=== PATIENT | male | born 1970 | race Caucasian/White ===

== ENCOUNTER → 2017-07-28 | Day surgery (SDC) | payer OTHER ==
[~2017-07-28] MED LIST: HYDROmorphONE/DILAUDID 1 MG/ML INJ IVP PRN; IOPAMIDOL (ISOVUE-300) 100 ML BTL ONE; KETOROLAC 15 MG/1 ML SDV IVP ONE; LIDOCAINE 2% VISCOUS 15 ML UDCUP ONE; LR 1,000 ML IV ONE; MAG HYDROX/AL HYDROX/SIMETH 30 ML UDCUP ONE; MBX SOLN 30 ML BOTTLE PO SCH; NS 1,000 ML IV ONE; NS 1,000 ML IV SCH; PANTOPRAZOLE SODIUM 40 MG TAB PO SCH; traMADol 50 MG TAB PO ONE; traMADol 50 MG TAB PO PRN
--- NOTE | 2017-07-28 15:30 | EDPHY ---
H & P Time Seen by Provider: 07/28/17 15:24 HPI/ROS: CHIEF COMPLAINT: Abdominal cramps, pain HISTORY OF PRESENT ILLNESS: The patient is a 46 y/o male with a history of GI issues complaining of abdominal pain and cramping onset 6 days ago. On he was eating dinner when he developed abdominal cramps and pain. The pain was in the middle of his upper abdomen. He laid down for a while and the cramps and pain receded. The cramps returned the next two days. He took milk of magnesia and felt an improvement. Wednesday the pain returned but was lower, in the center of his abdomen. The pain has not improved. He has associated abdominal cramping which fluctuates in intensity. The pain increases when bending over, palpating, or stretching. Today he called his PCP who directed him to the ED. He has associated loose stools and lack of appetite. He denies fever, nausea, vomiting , or other associated symptoms. He denies history of abdominal surgery or diverticulitis. He lived in [facility] and had giardiasis several times. Since then he limits legumes and cabbage and more from his diet to avoid abdominal pain. REVIEW OF SYSTEMS: Constitutional: No fever, no chills Eyes: No visual changes ENT: No sore throat Respiratory: No cough, no shortness of breath Cardiac: No chest pain Gastrointestinal: No nausea, no vomiting Genitourinary: No hematuria, no dysuria Musculoskeletal: No leg pain or swelling Skin: No rash Neurological: No headache, no numbness, no weakness Psychiatric: No depression Past Medical/Surgical History: Giardiasis Social History: at bedside, lived in [facility], employed Smoking Status: Never smoked Physical Exam: General Appearance: Alert, no distress Eyes: Pupils equal and round, no conjunctival pallor or injection ENT, Mouth: Mucous membranes moist Neck: Normal inspection Respiratory: Lungs are clear to auscultation Cardiovascular: Regular rate and rhythm Gastrointestinal: Diffuse abdominal tenderness, especially RLQ/suprapubic area , abdomen is soft, normal BS Neurological: A&O, nonfocal, normal gait Skin: Warm and dry, no rash Extremities: Nontender, no pedal edema Psychiatric: Mood and affect normal Constitutional: Initial Vital Signs Temperature (C) 37.2 C 07/28/17 13:59 Heart Rate 78 07/28/17 13:59 Respiratory Rate 17 07/28/17 13:59 Blood Pressure 134/83 H 07/28/17 13:59 O2 Sat (%) 95 07/28/17 13:59 O2 Delivery Mode Room Air Allergies/Adverse Reactions: No Known Allergies Allergy (Unverified 07/28/17 13:58) Home Medications: Medication Instructions Recorded NK [No Known Home Meds] 07/28/17 Medical Decision Making - Diagnostics Imaging Results: CT abd/pelvis: 9mm appendicitis, FF in pelvis, mesenteric stranding ED Course/Re-evaluation: The patient is a 46 y/o male with a history of GI issues complaining of abdominal pain and cramping since , 6 days ago. Pain is diffuse but concentrated to the periumbilical region. Concern for appy. He denies nausea, vomiting, fever, recent illness, or any other associated symptoms. Plan for CT and 1 L fluids. 1655: CT shows questionable early appendicitis. Plan for surgery consult. 2009: Patient seen by Dr. Dutton. The plan is for the patient have a GI cocktail and then Dr. Dutton will reassess him. After reassessment by Dr. Dutton, the plan is to d/c home with close outpt f/u. Unclear etiology of pain. Abd pain precautions given. Differential Diagnosis: The differential diagnosis for the patient's abdominal pain included but was not limited to diverticulitis, appendicitis, cholecystitis, hernias, testicular torsion, gastritis, and urinary tract infection. - Data Points Laboratory Results: Laboratory Results 07/28/17 15:30 07/28/17 15:30 Medications Given: Pantoprazole Sodium (Protonix) 40 mg PO BID JENNIFER Stop: 01/24/18 21:29 Last Admin: 07/28/17 21:37 Dose: 40 mg Discontinued Medications Sodium Chloride (Ns) 1,000 mls @ 0 mls/hr IV ONCE ONE PRN Reason: Wide Open Stop: 07/28/17 15:35 Last Admin: 07/28/17 15:54 Dose: 1,000 mls Lactated Ringer's (Lr) 1,000 mls @ 0 mls/hr IV ONCE ONE PRN Reason: KVO Stop: 07/28/17 19:50 Last Admin: 07/28/17 21:33 Dose: Not Given Lidocaine/Diphenhydramine/Alumin/Mg (Maalox/Diphenhydramine/Lido) 5 ml PO Q1HR JENNIFER Stop: 07/28/17 21:01 Last Admin: 07/28/17 20:13 Dose: 5 ml Tramadol HCl (Ultram) 50 mg PO ONCE ONE Stop: 07/28/17 21:30 Last Admin: 07/28/17 21:37 Dose: 50 mg Departure - Departure Disposition: Home, Routine, Self-Care Clinical Impression: Abdominal pain Qualifiers: Abdominal location: periumbilical Qualified Code(s): R10.33 - Periumbilical pain Condition: Good Report Scribed for: Karina Dumont Report Scribed by: Kelly Jones Date of Report: 07/28/17 Time of Report: 15:30 Physician Review and Approval Statement: 07/28/17 15:30 Portions of this note were transcribed by a medical assembly. I personally performed a history, physical exam, medical decision making, and confirmed accuracy of information the transcribed note.
[2017-07-28 15:37] LABS: ABSOLUTE IMMATURE GRANULOCYTES 0.06 10^3/uL (0.00-0.10); ADD DIFF? NO; ADD MORPH? NO; ADD SCAN? NO; ATYPICAL LYMPHOCYTE FLAG 10 (0-99); FRAGMENT RBC FLAG 0 (0-99); HEMOGLOBIN 15.2 g/dL (13.7-17.5); LEFT SHIFT FLG 0 (0-99); LIPEMIA HEMOLYSIS FLAG 90 (0-99); MEAN CELL HEMOGLOBIN 32.1 pg (27.9-34.1); MEAN CELL HEMOGLOBIN CONCENTR. 36.2 g/dL (32.4-36.7); MEAN CELL VOLUME 88.6 fL (81.5-99.8); MEAN PLATELET VOLUME 10.6 fL (8.7-11.7); PLATELET CLUMPS FLAG 10 (0-99); PLATELET COUNT 179 10^3/uL (150-400); RED BLOOD CELL COUNT 4.74 10^6/uL (4.40-6.38)
[2017-07-28 15:53] LABS: ALANINE AMINOTRANSFERASE 31 IU/L (21-72); ALBUMIN 4.5 g/dL (3.5-5.0); ALKALINE PHOSPHATASE 64 IU/L (38-126); ANION GAP 14 mEq/L (8-16); ASPARTATE AMINOTRANSFERASE 20 IU/L (17-59); BILIRUBIN,TOTAL 0.3 mg/dL (0.1-1.4); BILIRUBIN-CONJUGATED 0.1 mg/dL (0.0-0.5); BILIRUBIN-UNCONJUGATED 0.2 mg/dL (0.0-1.1); CALCIUM 9.2 mg/dL (8.5-10.4); CARBON DIOXIDE 24 mEq/l (22-31); CHLORIDE 106 mEq/L (97-110); GLOMERULAR FILTRATION RATE > 60; GLUCOSE 106 mg/dL (70-100); POTASSIUM 4.1 mEq/L (3.5-5.2); SODIUM 144 mEq/L (134-144); TOTAL PROTEIN 7.5 g/dL (6.3-8.2)
[2017-07-28 17:39] VITALS: TEMP 98.1
[2017-07-28 18:30] VITALS: RESP 18
[2017-07-28 19:41] VITALS: O2SAT 97
--- NOTE | 2017-07-28 19:50 | PDCONSULT ---
Timber Hewer Note: 46 y/o male with 6 day history of abd pain came to the ER for evaluation. A CT showed a possible appendicitis and surgical consult was requested He denies fever, chills, nausea, vomiting, anorexia. The pain has been epigastric and without localization to the RLQ. He is afebrile and does not appear ill. PE: mild central and LLQ abd tenderness, - Rovsing's, bowel sounds active no RLQ tenderness CT reviewed-no appendicolith Imp: Abd Pain of unclear etiology/clinical presentation not typical for appendicitis Rec: I discussed with Benton and his and recommended observation for now. I will check an ESR and re-examine him after a GI cocktail S MD Nato, FACS
[2017-07-28 20:04] LABS: SEDIMENTATION RATE 6 MM/HR (0-15)
[2017-07-28 21:38] VITALS: BP 131/79; PULSE 58
--- NOTE | 2017-07-28 22:20 | SOAPPROG ---
Downtime Inpatient Late Entry SOAP Note: I reassessed Benton after he received a GI cocktail. He feels a little better and remains hungry. His ESR was 6mm/hr (normal) His exam remains about the same with mild epigastric and LLQ tenderness, no RLQ tenderness, no guarding/mass or hernia. His clinical history and exam are inconsistent with a diagnosis of appendicitis I recommended a trial of PPI and outpatient FU with his PCP for consideration of a GI consultation. He lives in [place] and I recommended he return to the ED immediately if the pain is worse, associated with fever/emesis. Ramirez Dutton MD, FACS
== END | disposition home or self-care (01) ==
LOC: FSGY 19:46
PROVIDERS: ATTEND Surgery
DX: Z03.89 Encounter for observation for other suspected diseases and conditions ruled out (principal); R10.33 Periumbilical pain; Z86.19 Personal history of other infectious and parasitic diseases
CPT/HCPCS: Q9967

== ENCOUNTER 2018-01-03 23:34 | Emergency (ER) | payer OTHER ==
[2018-01-04] MEDS ORDERED: HYDROmorphONE/DILAUDID 2 MG/ML INJ IVP ONE ×2 (00:03→01:07)
[2018-01-04] MEDS ORDERED: KETOROLAC 30 MG/1 ML SDV IVP ONE (00:03)
[2018-01-04] MEDS ORDERED: NS 1,000 ML IV ONE (00:03)
[2018-01-04 00:16] LABS: PLATELET COUNT 173 10^3/uL (150-400)
[2018-01-04] MEDS ORDERED: IOPAMIDOL (ISOVUE-300) 100 ML BTL ONE (01:12)
--- NOTE | 2018-01-04 01:33 | EDPHY ---
H & P Stated Complaint: ABD PAIN Time Seen by Provider: 01/03/18 23:46 HPI/ROS: HPI The patient presents with abdominal pain which began at about 1:30 p.m. Today after having a bowel movement. He describes a cramping lower abdominal pain which is been constant and getting progressively worse. He has tried drinking tea, prune juice, baking soda without any improvement in his symptoms. He denies any nausea or vomiting. His most recent bowel movement was more formed than usual. He has not had any difficulty urinating or hematuria. He has not had a fever. The pain feels similar to what was ultimately diagnosed as sigmoid diverticulitis in June. He had a CT scan at that time revealed that revealed possible appendicitis. He had a surgical consultation and it was thought that he did not truly have appendicitis. As he was started on ciprofloxacin and Flagyl by his family medicine practitioner at that time and eventually improved. He had a colonoscopy in September which revealed sigmoid diverticulosis.. REVIEW OF SYSTEMS Constitutional: No fever, no chills. Eyes: No discharge. ENT: No sore throat. Cardiovascular: No chest pain, no palpitations. Respiratory: No cough, no shortness of breath. Gastrointestinal: See HPI Genitourinary: No hematuria. Musculoskeletal: No back pain. Skin: No rashes. Neurological: No headache. PMHx: History of diverticulitis Soc Hx: Housed PHYSICAL General Appearance: Alert, no distress Eyes: Pupils equal and round no pallor or injection ENT, Mouth: Mucous membranes moist Respiratory: There are no retractions, lungs are clear to auscultation Cardiovascular: Regular rate and rhythm Gastrointestinal: Abdomen is soft and tender in the left lower quadrant and suprapubic region, no masses, bowel sounds normal Neurological: A&O, moves all extremities Skin: Warm and dry, no rashes Musculoskeletal: Neck is supple non tender Extremities: symmetrical, full range of motion Psychiatric: Patient is oriented X 3, there is no agitation Source: Patient Exam Limitations: No limitations - Personal History Current Tetanus/Diphtheria Vaccine: Yes Current Tetanus Diphtheria and Acellular Pertussis (TDAP): Yes - Medical/Surgical History Hx Asthma: No Hx Chronic Respiratory Disease: No Hx Diabetes: No Hx Cardiac Disease: No Hx Renal Disease: No Hx Cirrhosis: No Hx Alcoholism: No Hx HIV/AIDS: No Hx Splenectomy or Spleen Trauma: No Other PMH: back pain, DIVORTICULITIS - Social History Smoking Status: Never smoked Constitutional: Initial Vital Signs Temperature (C) 36.7 C 01/03/18 23:35 Heart Rate 64 01/03/18 23:35 Respiratory Rate 18 01/03/18 23:35 Blood Pressure 140/59 H 01/03/18 23:35 O2 Sat (%) 97 01/03/18 23:35 O2 Delivery Mode Room Air Allergies/Adverse Reactions: No Known Allergies Allergy (Unverified 01/03/18 23:38) Home Medications: Medication Instructions Recorded Escitalopram Oxalate [Lexapro 10 01/03/18 MG] Ciprofloxacin [Cipro] 500 mg PO BID #14 tab 01/04/18 metroNIDAZOLE [Flagyl 500 mg (*)] 500 mg PO BID #14 tab 01/04/18 Medical Decision Making - Diagnostics Imaging Results: CT abdomen pelvis with IV contrast demonstrates 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 Mayer of Radiology. Imaging: Discussed imaging studies w/ call center agent Radiologist Differential Diagnosis: This is a a 47-year-old male with history of sigmoid diverticulitis in June of 2017 who presents with lower abdominal pain which is crampy in nature. Differential diagnosis includes diverticulitis, gastroenteritis, renal colic. In the emergency department, patient was given pain medication with improvement in his symptoms. Labs were checked and were unremarkable except for very mild hematuria. Given differential diagnosis, decision made for CT scan of his abdomen. This revealed similar changes to prior CT scan with some mesenteric fat stranding which is nonspecific. I feel he may be suffering from constipation verses early diverticulitis. On reassessment, patient's pain had improved. I have discussed the CT scan results with him. We have decided for a trial of MiraLax and if his pain continues he can fill antibiotics, Cipro and Flagyl for diverticulitis. - Data Points Laboratory Results: Laboratory Results 01/04/18 00:10 01/04/18 00:10 01/04/18 01/04/18 01/04/18 00:10 00:10 00:00 WBC 4.06 10^3/uL 10^3/uL (3.80-9.50) RBC 4.43 10^6/uL 10^6/uL (4.40-6.38) Hgb 14.3 g/dL g/dL (13.7-17.5) Hct 40.1 % % (40.0-51.0) MCV 90.5 fL fL (81.5-99.8) MCH 32.3 pg pg (27.9-34.1) MCHC 35.7 g/dL g/dL (32.4-36.7) RDW 12.0 % % (11.5-15.2) Plt Count 173 10^3/uL 10^3/uL (150-400) MPV 10.6 fL fL (8.7-11.7) Neut % (Auto) 51.6 % % (39.3-74.2) Lymph % (Auto) 35.2 % % (15.0-45.0) [place] % (Auto) 11.8 % % (4.5-13.0) Eos % (Auto) 1.0 % % (0.6-7.6) Baso % (Auto) 0.2 % L % (0.3-1.7) Nucleat RBC Rel Count 0.0 % % (0.0-0.2) Absolute Neuts (auto) 2.09 10^3/uL 10^3/uL (1.70-6.50) Absolute Lymphs (auto) 1.43 10^3/uL 10^3/uL (1.00-3.00) Absolute Monos (auto) 0.48 10^3/uL 10^3/uL (0.30-0.80) Absolute Eos (auto) 0.04 10^3/uL 10^3/uL (0.03-0.40) Absolute Basos (auto) 0.01 10^3/uL L 10^3/uL (0.02-0.10) Absolute Nucleated RBC 0.00 10^3/uL 10^3/uL (0-0.01) Immature Gran % 0.2 % % (0.0-1.1) Immature Gran # 0.01 10^3/uL 10^3/uL (0.00-0.10) Sodium 142 mEq/L mEq/L (135-145) Potassium 4.1 mEq/L mEq/L (3.5-5.2) Chloride 105 mEq/L mEq/L (97-110) Carbon Dioxide 28 mEq/l mEq/l (22-31) Anion Gap 9 mEq/L mEq/L (8-16) BUN 15 mg/dL mg/dL (7-23) Creatinine 0.8 mg/dL mg/dL (0.7-1.3) Estimated GFR > 60 Glucose 108 mg/dL H mg/dL (70-100) Calcium 9.4 mg/dL mg/dL (8.5-10.4) Total Bilirubin 0.7 mg/dL mg/dL (0.1-1.4) Conjugated Bilirubin 0.3 mg/dL mg/dL (0.0-0.5) Unconjugated Bilirubin 0.4 mg/dL mg/dL (0.0-1.1) AST 22 IU/L IU/L (17-59) ALT 26 IU/L IU/L (21-72) Alkaline Phosphatase 48 IU/L IU/L (38-126) Total Protein 7.0 g/dL g/dL (6.3-8.2) Albumin 4.3 g/dL g/dL (3.5-5.0) Lipase 68 IU/L IU/L (23-300) Urine Color YELLOW Urine Appearance CLEAR Urine pH 5.0 (5.0-7.5) Ur Specific [place] 1.014 (1.002-1.030) Urine Protein NEGATIVE (NEGATIVE) Urine Ketones NEGATIVE (NEGATIVE) Urine Blood 1+ H (NEGATIVE) Urine Nitrate NEGATIVE (NEGATIVE) Urine Bilirubin NEGATIVE (NEGATIVE) Urine Urobilinogen NEGATIVE EU EU (0.2-1.0) Ur Leukocyte Esterase NEGATIVE (NEGATIVE) Urine RBC 1-3 /hpf /hpf (0-3) Urine WBC Not Reported Ur Epithelial Cells Not Reported Urine Mucus TRACE /lpf /lpf (NONE-1+) Urine Glucose NEGATIVE (NEGATIVE) Medications Given: Discontinued Medications Hydromorphone HCl (Dilaudid) 0.5 mg IVP EDNOW ONE Stop: 01/04/18 00:04 Last Admin: 01/04/18 00:26 Dose: 0.5 mg Hydromorphone HCl (Dilaudid) 0.5 mg IVP EDNOW ONE Stop: 01/04/18 01:08 Last Admin: 01/04/18 01:43 Dose: Not Given Sodium Chloride (Ns) 1,000 mls @ 0 mls/hr IV EDNOW ONE; Wide Open PRN Reason: Protocol Stop: 01/04/18 00:04 Last Admin: 01/04/18 00:26 Dose: 1,000 mls Ketorolac Tromethamine (Toradol) 15 mg IVP EDNOW ONE Stop: 01/04/18 00:04 Last Admin: 01/04/18 00:27 Dose: 15 mg Departure - Departure Disposition: Home, Routine, Self-Care Clinical Impression: Abdominal pain Qualifiers: Abdominal location: unspecified location Qualified Code(s): R10.9 - Unspecified abdominal pain Condition: Good Instructions: Acute Abdominal Pain (ED) Additional Instructions: Please return to the emergency department if your worse in any way. I recommend you take MiraLax 17 g once a day to help with your bowel movements. If your pain continues, I would recommend that you take antibiotics of I have prescribed. Referrals: SARAH LACKEY [Primary Care Provider] - As per Instructions Prescriptions: Ciprofloxacin [Cipro] 500 mg PO BID #14 tab metroNIDAZOLE [Flagyl 500 mg (*)] 500 mg PO BID #14 tab
[2018-01-04 02:36] VITALS: BP 120/78
== END 2018-01-04 02:36 | disposition home or self-care (01) ==
DX: R10.32 Left lower quadrant pain (principal); E86.9 Volume depletion, unspecified
CPT/HCPCS: 96374; J1170; J1885; Q9967